=== PATIENT | male | born 1955 | race Caucasian/White ===

== ENCOUNTER 2017-08-22 06:23 | Inpatient (IN) | payer MEDICARE, BC ==
[2017-08-22] MEDS: VANCOMYCIN 1 GM 250 ML IVPB (06:43)
[2017-08-22] MEDS ORDERED: FENTAnyl 50 MCG/ML VIAL (06:55)
[2017-08-22] MEDS ORDERED: ONDANSETRON 4 MG INJ (06:55)
[2017-08-22] MEDS ORDERED: METOCLOPRAMIDE 10 MG INJ (06:55)
[2017-08-22] MEDS ORDERED: PROPOFOL 20 ML (06:55)
[2017-08-22] MEDS ORDERED: ROCURONIUM 50 MG INJ ×2 (06:55→07:40)
[2017-08-22] MEDS ORDERED: MIDAZOLAM 1 MG/ML 2 ML INJ (06:55)
[2017-08-22] MEDS ORDERED: CEPASTAT LOZENGE MT (07:00)
[2017-08-22] MEDS ORDERED: HYDROmorphONE 0.5 MG/0.5 ML SYG IV (07:00)
[2017-08-22] MEDS ORDERED: ACETAMINOPHEN 325 MG TAB PO (07:00)
[2017-08-22] MEDS ORDERED: NALOXONE (0.4 MG/ML) INJ IV (07:00)
[2017-08-22] MEDS ORDERED: DIPHENHYDRAMINE 50 MG INJ IV (07:00)
[2017-08-22] MEDS ORDERED: DIPHENHYDRAMINE 25 MG CAP PO (07:00)
[2017-08-22] MEDS ORDERED: BISACODYL 10 MG SUPP PR (07:00)
[2017-08-22] MEDS: LACTATED RINGER'S 1,000 ML IV* (07:00)
[2017-08-22] MEDS ORDERED: EPHEDrine SULFATE 50 MG/5 ML SYG (07:40)
[2017-08-22] MEDS ORDERED: HYDROmorphONE 2 MG/ML SYG (08:04)
[2017-08-22] MEDS: HEPARIN 1000 UNITS/ML 10 ML INJ ×2 (08:26→08:27)
[2017-08-22] MEDS: BUPIVACAINE 0.5%/EPI (SDV) 30 ML INJ (08:26)
[2017-08-22] MEDS: THROMBIN 5000 UNIT VIAL (08:27)
[2017-08-22] MEDS: SURGIFOAM POWDER 1 GM KIT (08:27)
[2017-08-22] MEDS ORDERED: EPHEDrine SULFATE 50 MG/5 ML SYG IV (09:00)
[2017-08-22] MEDS: DOCUSATE SODIUM 100 MG CAP PO ×2 (09:00→20:54)
[2017-08-22] MEDS ORDERED: LABETALOL HCL 20MG INJ IV (09:00)
[2017-08-22] MEDS ORDERED: hydrALAzine 20 MG INJ IV (09:00)
[2017-08-22] MEDS ORDERED: MEPERIDINE 25 MG INJ IV (09:00)
[2017-08-22] MEDS ORDERED: HYDROmorphONE 1 MG/5 ML IV SYRINGE IV ×2 (09:00)
[2017-08-22] MEDS: CA CHLORIDE 10% 10 ML SYRINGE (10:04)
[2017-08-22] MEDS: POLYMYXIN/BACITRACIN 1L IRRIG (10:08)
[2017-08-22] MEDS: FENTAnyl 50 MCG/ML VIAL (10:37)
[2017-08-22] MEDS: BUPIVACAINE 0.25% (MPF) 30 ML INJ (10:37)
[2017-08-22] MEDS ORDERED: GLYCOPYRROLATE 0.4 MG INJ (11:04)
[2017-08-22] MEDS ORDERED: NEOSTIGMINE 3 MG/3 ML SYRINGE (11:04)
[2017-08-22] MEDS: HYDROmorphONE 1 MG/5 ML IV SYRINGE IV (11:51)
[2017-08-22] MEDS: HYDROmorphONE 0.2 MG/ML PCA IV (11:56)
[2017-08-22] MEDS: ONDANSETRON 4 MG INJ IV ×2 (12:01→22:14)
[2017-08-22] MEDS: DIPHENHYDRAMINE 50 MG INJ IV (12:01)
[2017-08-22] MEDS ORDERED: NON-FORMULARY/PATIENT OWN MED (Ergocalciferol (Vitamin D2) (Vitamin D2) 50,000 UNIT) XX (13:30)
[2017-08-22] MEDS: D5W-0.45 NACL + KCL 20 MEQ 1,000 ML IV ×2 (14:54→16:59)
[2017-08-22] MEDS: VANCOMYCIN 1 GM (PMX) 250 ML IVPB (19:30)
[2017-08-22] MEDS: ALPRAZOLAM 0.5 MG TAB PO (20:54)
[2017-08-22] MEDS: ATORVASTATIN 40 MG TAB PO (20:54)
[2017-08-22] MEDS: AL HYDROX/MG HYDROX/SIMETH 30 ML CUP PO (22:14)
[2017-08-23] MEDS: HYDROmorphONE 0.2 MG/ML PCA IV ×3 (01:33→10:47)
[2017-08-23] MEDS: PANTOPRAZOLE 40 MG INJ IV (05:27)
[2017-08-23] MEDS: D5W-0.45 NACL + KCL 20 MEQ 1,000 ML IV ×2 (05:31→15:00)
[2017-08-23 05:35] LABS: ADD MAN DIFF? NO
[2017-08-23 05:39] LABS: WHITE BLOOD COUNT 9.1 10^3/ul (4.8-10.8)
[2017-08-23 05:39] LABS: BASOPHILS % 0.4 % (0.0-2.0); EOSINOPHILS # 0.3 10^3/ul (0.0-0.5); EOSINOPHILS % 3.4 % (0.0-7.0); HEMATOCRIT 35.4 % (42.0-52.0); HEMOGLOBIN 11.8 g/dl (14.0-18.0); LYMPHOCYTES # 1.4 10^3/ul (0.8-2.9); LYMPHOCYTES % 15.4 % (15.0-51.0); MEAN CORPUSCULAR HEMOGLOBIN 32.8 pg (29.0-33.0); MEAN CORPUSCULAR HGB CONC 33.3 g/dl (32.0-37.0); MEAN CORPUSCULAR VOLUME 98.3 fl (82.0-101.0); MEAN PLATELET VOLUME 11.4 fl (7.4-10.4); MONOCYTE # 1.1 10^3/ul (0.3-0.9); MONOCYTES % 12.1 % (0.0-11.0); NEUTROPHIL # 6.2 10^3/ul (1.6-7.5); NEUTROPHILS % 68.3 % (39.0-77.0); PLATELET COUNT 182 10^3/UL (140-415); RED CELL DISTRIBUTION WIDTH 13.2 % (11.5-14.5)
[2017-08-23 06:35] LABS: ANION GAP 12 (8-16); BLOOD UREA NITROGEN 11 mg/dl (7-20); CALCIUM 8.8 mg/dl (8.4-10.2); CARBON DIOXIDE 30 mmol/L (21-31); CHLORIDE 101 mmol/L (97-110); CREATININE 1.26 mg/dl (0.61-1.24); GLUCOSE 132 mg/dl (70-220); MAGNESIUM 1.8 mg/dl (1.7-2.5); POTASSIUM 3.8 mmol/L (3.5-5.1); SODIUM 139 mmol/L (135-144)
[2017-08-23] MEDS: LACTATED RINGER'S 1,000 ML IV* (07:00)
[2017-08-23] MEDS: VANCOMYCIN 1 GM (PMX) 250 ML IVPB (07:35)
[2017-08-23] MEDS ORDERED: NON-FORMULARY/PATIENT OWN MED (Omeprazole* 40 MG) PO (09:00)
[2017-08-23] MEDS ORDERED: LOSARTAN 50 MG TAB PO (09:00)
[2017-08-23] MEDS: CYANOCOBALAMIN 500 MCG TAB PO (09:34)
[2017-08-23] MEDS: DOCUSATE SODIUM 100 MG CAP PO ×2 (09:34→20:54)
[2017-08-23] MEDS: ALPRAZOLAM 0.5 MG TAB PO ×2 (09:34→20:55)
[2017-08-23 13:10] LABS: SODIUM,URINE RANDOM 84 mmol/L (30-90)
[2017-08-23] MEDS: ONDANSETRON 4 MG INJ IV (16:06)
[2017-08-23] MEDS: CARISOPRODOL 350 MG TAB PO (18:03)
[2017-08-23] MEDS: ATORVASTATIN 40 MG TAB PO (20:55)
[2017-08-23] MEDS: HYDROCODONE/APAP (10/325) TAB PO (23:48)
[2017-08-24] MEDS: D5W-0.45 NACL + KCL 20 MEQ 1,000 ML IV (02:36)
[2017-08-24 05:07] LABS: WHITE BLOOD COUNT 7.5 10^3/ul (4.8-10.8)
[2017-08-24 05:07] LABS: ADD MAN DIFF? NO; BASOPHILS % 0.3 % (0.0-2.0); EOSINOPHILS # 0.3 10^3/ul (0.0-0.5); EOSINOPHILS % 3.8 % (0.0-7.0); HEMATOCRIT 31.6 % (42.0-52.0); HEMOGLOBIN 10.6 g/dl (14.0-18.0); LYMPHOCYTES % 13.8 % (15.0-51.0); MEAN CORPUSCULAR HEMOGLOBIN 32.9 pg (29.0-33.0); MEAN CORPUSCULAR HGB CONC 33.5 g/dl (32.0-37.0); MEAN CORPUSCULAR VOLUME 98.1 fl (82.0-101.0); MEAN PLATELET VOLUME 11.1 fl (7.4-10.4); MONOCYTE # 0.9 10^3/ul (0.3-0.9); MONOCYTES % 11.4 % (0.0-11.0); NEUTROPHIL # 5.2 10^3/ul (1.6-7.5); NEUTROPHILS % 70.3 % (39.0-77.0); PLATELET COUNT 145 10^3/UL (140-415); RED BLOOD COUNT 3.22 10^6/ul (4.70-6.10); RED CELL DISTRIBUTION WIDTH 12.8 % (11.5-14.5)
[2017-08-24 05:34] LABS: PHOSPHORUS 3.8 mg/dl (2.5-4.9)
[2017-08-24 05:44] LABS: ANION GAP 9 (8-16); BLOOD UREA NITROGEN 9 mg/dl (7-20); CALCIUM 8.6 mg/dl (8.4-10.2); CARBON DIOXIDE 34 mmol/L (21-31); CHLORIDE 101 mmol/L (97-110); CREATININE 1.06 mg/dl (0.61-1.24); GLUCOSE 116 mg/dl (70-220); MAGNESIUM 1.9 mg/dl (1.7-2.5); SODIUM 140 mmol/L (135-144)
[2017-08-24] MEDS: PANTOPRAZOLE 40 MG INJ IV (05:58)
[2017-08-24] MEDS: HYDROCODONE/APAP (10/325) TAB PO ×2 (06:04→13:33)
[2017-08-24] MEDS: LACTATED RINGER'S 1,000 ML IV* (07:00)
[2017-08-24] MEDS: CYANOCOBALAMIN 500 MCG TAB PO (09:16)
[2017-08-24] MEDS: DOCUSATE SODIUM 100 MG CAP PO (09:17)
[2017-08-24] MEDS: ALPRAZOLAM 0.5 MG TAB PO (09:17)
[2017-08-24] MEDS: LOSARTAN 50 MG TAB PO (09:17)
[2017-08-24] MEDS: AL HYDROX/MG HYDROX/SIMETH 30 ML CUP PO (11:06)
[2017-08-25] MEDS ORDERED: ERGOCALCIFEROL 50,000 UNIT CAP PO (09:00)
== END 2017-08-24 15:58 | DRG 460 ==
LOC: REC 06:23 → MS1 12:33
PROC: 0SG0071 Fusion of Lumbar Vertebral Joint with Autologous Tissue Substitute, Posterior Approach, Posterior Column, Open Approach (ICD-10-PCS; principal; 2017-08-22 07:00)
PROC: 0SG3071 Fusion of Lumbosacral Joint with Autologous Tissue Substitute, Posterior Approach, Posterior Column, Open Approach (ICD-10-PCS; 2017-08-22 07:00)
PROC: 0QP004Z Removal of Internal Fixation Device from Lumbar Vertebra, Open Approach (ICD-10-PCS; 2017-08-22 07:00)
PROC: 07DR3ZZ Extraction of Iliac Bone Marrow, Percutaneous Approach (ICD-10-PCS; 2017-08-22 07:00)
DX: M96.0 Pseudarthrosis after fusion or arthrodesis (principal); T84.038A Mechanical loosening of other internal prosthetic joint, initial encounter; N17.9 Acute kidney failure, unspecified; M43.17 Spondylolisthesis, lumbosacral region; M48.07 Spinal stenosis, lumbosacral region; I10 Essential (primary) hypertension; Z88.0 Allergy status to penicillin; E78.5 Hyperlipidemia, unspecified; E66.01 Morbid (severe) obesity due to excess calories; Z96.643 Presence of artificial hip joint, bilateral; Y83.8 Other surgical procedures as the cause of abnormal reaction of the patient, or of later complication, without mention of misadventure at the time of the procedure
CPT/HCPCS: 72110; 80048; 83735; 84100; 84300; 85025; 86850; 86900; 86901; 86920; 86999; 87086; 88300; 97116; 97162; 97530

== ENCOUNTER 2017-08-24 16:07 | Inpatient (IN) | payer MEDICARE, BC ==
[2017-08-24] MEDS ORDERED: ACETAMINOPHEN 325 MG TAB PO (17:00)
[2017-08-24] MEDS ORDERED: BISACODYL 10 MG SUPP PR (17:00)
[2017-08-24] MEDS ORDERED: PENDING SANTYL ORDER FOR WOUND CARE XX (17:00)
[2017-08-24] MEDS ORDERED: AL HYDROX/MG HYDROX/SIMETH 30 ML CUP PO (17:00)
[2017-08-24] MEDS ORDERED: DIPHENHYDRAMINE 25 MG CAP PO (17:00)
[2017-08-24] MEDS: HYDROCODONE/APAP (10/325) TAB PO ×2 (17:32→23:16)
[2017-08-24 20:03] LABS: ADD UMIC YES; UR ASCORBIC ACID NEGATIVE (NEGATIVE); UR BACTERIA FEW /HPF (NONE SEEN); UR BILIRUBIN (Dip) NEGATIVE (NEGATIVE); UR BLOOD (Dip) 1+ mg/dL (NEGATIVE); UR CLARITY CLEAR (CLEAR); UR COLOR YELLOW (YELLOW); UR GLUCOSE (Dip) NEGATIVE (NEGATIVE); UR KETONES (Dip) NEGATIVE (NEGATIVE); UR LEUKOCYTE ESTERASE (Dip) NEGATIVE Leu/ul (NEGATIVE); UR NITRITE (Dip) NEGATIVE (NEGATIVE); UR RBC 1 /HPF (0-5); UR SPECIFIC GRAVITY (Dip) 1.008 (1.003-1.030); UR TOTAL PROTEIN (Dip) NEGATIVE (NEGATIVE); UR UROBILINOGEN (Dip) NEGATIVE (NEGATIVE); UR WBC 3 /HPF (0-5)
[2017-08-24] MEDS: ALPRAZOLAM 0.25 MG TAB PO (20:54)
[2017-08-24] MEDS: DOCUSATE SODIUM 100 MG CAP PO (20:54)
[2017-08-24] MEDS: ATORVASTATIN 40 MG TAB PO (20:54)
[2017-08-25] MEDS: HYDROCODONE/APAP (10/325) TAB PO ×4 (04:53→19:41)
[2017-08-25] MEDS: PANTOPRAZOLE (EC) 40 MG TAB PO (05:19)
[2017-08-25] MEDS: MAGNESIUM HYDROXIDE 30ML CUP PO ×2 (05:23→21:50)
[2017-08-25 06:34] LABS: ADD MAN DIFF? NO
[2017-08-25 06:49] LABS: BASOPHILS % 0.3 % (0.0-2.0); EOSINOPHILS # 0.4 10^3/ul (0.0-0.5); EOSINOPHILS % 6.7 % (0.0-7.0); HEMATOCRIT 31.9 % (42.0-52.0); HEMOGLOBIN 10.7 g/dl (14.0-18.0); LYMPHOCYTES # 1.2 10^3/ul (0.8-2.9); LYMPHOCYTES % 17.9 % (15.0-51.0); MEAN CORPUSCULAR HEMOGLOBIN 32.9 pg (29.0-33.0); MEAN CORPUSCULAR HGB CONC 33.5 g/dl (32.0-37.0); MEAN CORPUSCULAR VOLUME 98.2 fl (82.0-101.0); MEAN PLATELET VOLUME 11.4 fl (7.4-10.4); MONOCYTES % 14.9 % (0.0-11.0); NEUTROPHIL # 3.9 10^3/ul (1.6-7.5); NEUTROPHILS % 59.9 % (39.0-77.0); PLATELET COUNT 170 10^3/UL (140-415); RED BLOOD COUNT 3.25 10^6/ul (4.70-6.10); RED CELL DISTRIBUTION WIDTH 12.7 % (11.5-14.5)
[2017-08-25 06:49] LABS: WHITE BLOOD COUNT 6.5 10^3/ul (4.8-10.8)
[2017-08-25 07:06] LABS: ALANINE AMINOTRANSFERASE 25 IU/L (13-69); ALBUMIN 3.3 g/dl (3.3-4.9); ALKALINE PHOSPHATASE 54 IU/L (42-121); ANION GAP 7 (8-16); ASPARTATE AMINO TRANSFERASE 20 IU/L (15-46); BILIRUBIN,INDIRECT 0.6 mg/dl (0-1.1); BILIRUBIN,TOTAL 0.6 mg/dl (0.2-1.3); BLOOD UREA NITROGEN 10 mg/dl (7-20); CALCIUM 8.8 mg/dl (8.4-10.2); CARBON DIOXIDE 34 mmol/L (21-31); CHLORIDE 101 mmol/L (97-110); CREATININE 1.03 mg/dl (0.61-1.24); GLUCOSE 109 mg/dl (70-220); SODIUM 138 mmol/L (135-144); TOTAL PROTEIN 6.3 g/dl (6.1-8.1)
[2017-08-25] MEDS: BISACODYL 10 MG SUPP PR (08:30)
[2017-08-25] MEDS: LOSARTAN 50 MG TAB PO (09:00)
[2017-08-25] MEDS: ALPRAZOLAM 0.25 MG TAB PO ×2 (09:41→21:40)
[2017-08-25] MEDS: ERGOCALCIFEROL 50,000 UNIT CAP PO (09:41)
[2017-08-25] MEDS: DOCUSATE SODIUM 100 MG CAP PO ×2 (09:41→21:40)
[2017-08-25] MEDS: LACTULOSE 30ML CUP PO (09:43)
[2017-08-25] MEDS: CYANOCOBALAMIN 500 MCG TAB PO (20:25)
[2017-08-25] MEDS: ATORVASTATIN 40 MG TAB PO (21:40)
[2017-08-26] MEDS: PANTOPRAZOLE (EC) 40 MG TAB PO (06:49)
[2017-08-26] MEDS: HYDROCODONE/APAP (10/325) TAB PO ×2 (06:49→16:50)
[2017-08-26] MEDS: ALPRAZOLAM 0.25 MG TAB PO ×2 (09:03→21:01)
[2017-08-26] MEDS: LOSARTAN 50 MG TAB PO (09:03)
[2017-08-26] MEDS: CYANOCOBALAMIN 500 MCG TAB PO (09:03)
[2017-08-26] MEDS: CARISOPRODOL 350 MG TAB PO (09:03)
[2017-08-26] MEDS: DOCUSATE SODIUM 100 MG CAP PO ×2 (09:03→21:00)
[2017-08-26] MEDS: LACTULOSE 30ML CUP PO (09:15)
[2017-08-26] MEDS: MAGNESIUM CITRATE 300 ML BTL PO (12:25)
[2017-08-26] MEDS: ATORVASTATIN 40 MG TAB PO (21:01)
[2017-08-27] MEDS: HYDROCODONE/APAP (10/325) TAB PO ×4 (04:55→20:06)
[2017-08-27] MEDS: PANTOPRAZOLE (EC) 40 MG TAB PO (04:58)
[2017-08-27] MEDS: DOCUSATE SODIUM 100 MG CAP PO ×3 (08:14→20:09)
[2017-08-27] MEDS: LOSARTAN 50 MG TAB PO (08:14)
[2017-08-27] MEDS: ALPRAZOLAM 0.25 MG TAB PO ×2 (08:15→20:07)
[2017-08-27] MEDS: CYANOCOBALAMIN 500 MCG TAB PO (11:44)
[2017-08-27] MEDS: ATORVASTATIN 40 MG TAB PO (20:06)
[2017-08-27] MEDS: ZOLPIDEM 5 MG TAB PO (21:12)
[2017-08-28] MEDS: PANTOPRAZOLE (EC) 40 MG TAB PO (05:44)
[2017-08-28] MEDS: HYDROCODONE/APAP (10/325) TAB PO ×5 (05:45→22:20)
[2017-08-28] MEDS: ALPRAZOLAM 0.25 MG TAB PO ×2 (08:59→20:18)
[2017-08-28] MEDS: CYANOCOBALAMIN 500 MCG TAB PO (09:00)
[2017-08-28] MEDS: DOCUSATE SODIUM 100 MG CAP PO ×2 (09:00→20:20)
[2017-08-28] MEDS: LOSARTAN 50 MG TAB PO (09:03)
[2017-08-28] MEDS: ATORVASTATIN 40 MG TAB PO (20:19)
[2017-08-28] MEDS: ZOLPIDEM 5 MG TAB PO ×2 (21:39→22:20)
[2017-08-29] MEDS: PANTOPRAZOLE (EC) 40 MG TAB PO (06:08)
[2017-08-29] MEDS: HYDROCODONE/APAP (10/325) TAB PO (06:08)
[2017-08-29] MEDS ORDERED: DIMETHICONE STICK TOP (08:30)
[2017-08-29] MEDS: CYANOCOBALAMIN 500 MCG TAB PO (08:32)
[2017-08-29] MEDS: ALPRAZOLAM 0.25 MG TAB PO (08:32)
[2017-08-29] MEDS: LOSARTAN 50 MG TAB PO (08:32)
[2017-08-29] MEDS: DOCUSATE SODIUM 100 MG CAP PO (08:33)
== END 2017-08-29 11:45 | DRG 561 ==
LOC: VRC 16:07
PROC: F07Z5ZZ Bed Mobility Treatment (ICD-10-PCS; principal; 2017-08-25)
PROC: F07Z8ZZ Transfer Training Treatment (ICD-10-PCS; 2017-08-25)
PROC: F07Z9ZZ Gait Training/Functional Ambulation Treatment (ICD-10-PCS; 2017-08-25)
PROC: F08Z2ZZ Grooming/Personal Hygiene Treatment (ICD-10-PCS; 2017-08-25)
PROC: F08Z1ZZ Dressing Techniques Treatment (ICD-10-PCS; 2017-08-25)
PROC: F08Z0ZZ Bathing/Showering Techniques Treatment (ICD-10-PCS; 2017-08-25)
DX: Z47.89 Encounter for other orthopedic aftercare (principal); F41.9 Anxiety disorder, unspecified; I10 Essential (primary) hypertension; K59.00 Constipation, unspecified; K29.70 Gastritis, unspecified, without bleeding; M54.5 Low back pain; R52 Pain, unspecified; R26.89 Other abnormalities of gait and mobility; Z74.09 Other reduced mobility; Z96.643 Presence of artificial hip joint, bilateral; Z98.1 Arthrodesis status; S00.521A Blister (nonthermal) of lip, initial encounter; X58.XXXA Exposure to other specified factors, initial encounter
CPT/HCPCS: 80053; 81001; 85025; 87081; 87086; 97110; 97116; 97163; 97167; 97530; 97535